=== PATIENT | female | born 1985 ===

== ENCOUNTER 2024-04-13 06:43 | Day surgery (SDC) | payer OTHER ==
[2024-04-13] MEDS ORDERED: MIDAZOLAM HCL 2 MG/2 ML VIAL IV ONE (09:00)
[2024-04-13] MEDS ORDERED: DIPHENHYDRAMINE HCL 50 MG/ML VIAL 1ML IV ONE (09:00)
[2024-04-13] MEDS ORDERED: fentaNYL CITRATE 50 MCG/ML AMPUL IV PUSH ONE (09:00)
== END 2024-04-13 10:35 | disposition home or self-care (01) ==
LOC: AMB-ENDOS 06:43
PROVIDERS: ATTEND Colon & Rectal Surgery
DX: K62.5 Hemorrhage of anus and rectum (principal); K60.0 Acute anal fissure